=== PATIENT | female | born 1980 | race Two or more races ===

== ENCOUNTER 2019-09-27 09:39 | Emergency (ER) | payer BC, OTHER ==
[~2019-09-27] VITALS: Ht 152.4 cm; Wt 59.0 kg
--- NOTE | 2019-09-27 09:57 | Emergency Room Report ---
History of Present Illness General Chief Complaint: Complications Source: Patient Present Illness HPI Disclaimer: Please note that this report is being documented using DRAGON technology. This can lead to erroneous entry secondary to incorrect interpretation by the dictating instrument. HPI: 38-year-old G3, P2 female at 12 weeks gestation by LMP presents for evaluation of vaginal bleeding and abdominal cramping. Symptoms have been present for the past 2 days. She was seen in the emergency department 09/24 with similar complaints. Ultrasound that time showed an intrauterine 7 weeks 2 days by crown-rump length without heart activity concerning for nonviable . She was discharged to follow-up with her OB which she saw yesterday. She states no repeat ultrasound was done but she did have repeat lab lab work which she does not yet have the results of. She reports persistent abdominal cramping, dark blood and patches of tissue consistent with a "period." Otherwise denies fever, chills, chest pain, shortness of breath, vomiting, diarrhea, dysuria. PMH: Anemia PSH: Cholecystectomy, section x2 Allergies: None Social Hx: None Allergies: Coded Allergies: No Known Allergies (Unverified , 09/25/19) COVID-19 Screening Contact w/high risk pt: No Experienced COVID-19 symptoms?: No COVID-19 Testing performed [facility]ELDER: No Patient History Last Menstrual Period: 07/03/19 Now: Yes : 3 Para: 2 Nursing Documentation-PMH Past Medical History: No History, Except For Review of Systems All Other Systems: negative except mentioned in HPI Physical Exam Vital Signs Date Time Temp Pulse Resp B/P (MAP) Pulse Ox O2 Delivery O2 Flow Rate FiO2 09/27/19 09:45 98.2 80 17 114/93 (100) 98 Room Air General: Awake and alert, appears uncomfortable HEENT: NC/AT. EOMI. Cardiovascular: RRR. S1 and S2 normal. No murmur appreciated Resp: Normal work of breathing. No cough, wheezing or crackles appreciated Abdomen: Abdomen is soft, nondistended. Tenderness to palpation in the lower quadrants and suprapubic region of the abdomen. Skin: Intact. No abrasions, laceration or rash over the exposed skin MSK: Normal tone and bulk. Moving all extremities. No obvious deformity. Neuro: Awake and alert. Mentating appropriately. Procedures Critical Care Time Critical Care Time Total critical care time: Approximately 45 minutes Due to a high probability of clinically significant, life threatening deterioration, the patient required the highest level of preparedness to intervene emergently and I personally spent this critical care time directly and personally managing the patient. This critical care time included obtaining a history, examining the patient, pulse oximetry, ordering and reviewing studies , ordering treatments, evaluating response to treatment and updating management plan as needed, frequent reassessment and discussion with other providers as well as arranging for ultimate disposition. This critical to care time was performed to assess and manage the high probability of life-threatening deterioration that could result in multiorgan failure. This critical care time is separate from the separately billable procedures and treating other patients. Medical Decision Making Diagnostic Impression: Primary Impression: Inevitable spontaneous Additional Impression: Uterine fibroid ER Course Is a 38-year-old G3, P2 female at 12 weeks gestation by LMP presenting with abdominal cramping and vaginal bleeding. Concern given her recent ED visit and ultrasound results of inevitable , incomplete , retained products of conception among others. Blood work obtained shows hemoglobin at 10.4 which is increased from prior visit. White count largely unchanged. hCG declining from 11,593 to 6401 today no evidence of infection on urinalysis, coagulation studies within normal limits. Ultrasound was again obtained showing fluid collection within the cervix appearing to be a yolk sac multiple uterine fibroids and evidence of spontaneous in progress with intrauterine gestational sac seen in the endocervical canal. Patient states she believes she passed some tissue earlier today. No evidence of infection. I discussed with [employer], Dr. Blackman, who recommended 20 units of Pitocin in her IV fluids. At her gestational age it is possible she may require a D&C however at this time is not emergent. She has an [employer] and is calling now to arrange an appointment. 1430: Patient remains in stable condition and feeling well. Symptoms are improved. She is nearly finished with her Pitocin infusion. She is stable for outpatient follow-up and will be discharged after fluids are finished. Instructed to follow-up as soon as possible with [employer] to discuss need for D&C for other interventions as needed. She understands and agrees with this treatment plan. Laboratory Tests Test 09/27/19 09:55 White Blood Count 14.1 K/UL (4.8-10.8) H Red Blood Count 5.02 M/UL (4.20-5.40) Hemoglobin 10.4 G/DL (12.0-16.0) L Hematocrit 35.0 % (37.0-47.0) L Mean Corpuscular Volume 70 FL (80-99) L Mean Corpuscular Hemoglobin 20.7 PG (27.0-31.0) L Mean Corpuscular Hemoglobin Concent 29.7 G/DL (32.0-36.0) L Red Cell Distribution Width 21.9 % (11.6-14.8) H Platelet Count 463 K/UL (150-450) H Mean Platelet Volume 7.0 FL (6.5-10.1) Neutrophils (%) (Auto) 73.9 % (45.0-75.0) Lymphocytes (%) (Auto) 20.9 % (20.0-45.0) Monocytes (%) (Auto) 3.8 % (1.0-10.0) Eosinophils (%) (Auto) 0.6 % (0.0-3.0) Basophils (%) (Auto) 0.8 % (0.0-2.0) Prothrombin Time 10.9 SEC (9.30-11.50) Prothrombin Time INR 1.0 (0.9-1.1) Activated Partial Thromboplast Time 25 SEC (23-33) Sodium Level 134 MMOL/L (136-145) L Potassium Level 3.8 MMOL/L (3.5-5.1) Chloride Level 104 MMOL/L (98-107) Carbon Dioxide Level 21 MMOL/L (21-32) Anion Gap 10 mmol/L (5-15) Blood Urea Nitrogen 17 mg/dL (7-18) Creatinine 0.9 MG/DL (0.55-1.30) Estimated Glomerular Filtration Rate > 60 mL/min (>60) Glucose Level 95 MG/DL (74-106) Calcium Level 9.0 MG/DL (8.5-10.1) Total Bilirubin 0.3 MG/DL (0.2-1.0) Aspartate Amino Transferase (AST) 22 U/L (15-37) Alanine Aminotransferase (ALT) 29 U/L (12-78) Alkaline Phosphatase 68 U/L (46-116) Total Protein 7.9 G/DL (6.4-8.2) Albumin 3.8 G/DL (3.4-5.0) Globulin 4.1 g/dL Albumin/Globulin Ratio 0.9 (1.0-2.7) L Lipase 140 U/L (73-393) Human Chorionic Gonadotropin, Quant 6401 mIU/mL (1-6) H CT/MRI/US Diagnostic Results CT/MRI/US Diagnostic Results : Impression Impression: Somewhat limited exam, due to lack of endovaginal images Evidence of spontaneous in progress, with previously demonstrated intrauterine gestational sac now seen within the endocervical canal. Multiple uterine fibroids, also previously reported Dictated By: Vipin Fairchild MD Electronically Signed By: Vipin Fairchild MD Signed Date/Time 09/27/19 1206 CC: David Aguayo MD Last Vital Signs Date Time Temp Pulse Resp B/P (MAP) Pulse Ox O2 Delivery O2 Flow Rate FiO2 09/27/19 09:45 98.2 80 17 114/93 (100) 98 Room Air David Aguayo MD Sep 27, 2019 09:57
[2019-09-27] MEDS ORDERED: Morphine Sulfate 4mg/ml Inj (IV USE ONLY) IVP ONE (10:00)
--- NOTE | 2019-09-27 10:05 | NUR ---
ED Nurse Note:pt. came from home with vaginal bleeding and lower abdominal cramping pain, pt. is 12 weeks , blood was sent to labs, pt. received IV fluids and pain meds
[2019-09-27 10:19] LABS: BASOPHILS % (AUTO) 0.8 % (0.0-2.0); EOSINOPHILS % (AUTO) 0.6 % (0.0-3.0); HEMOGLOBIN 10.4 G/DL (12.0-16.0); LYMPHOCYTES % (AUTO) 20.9 % (20.0-45.0); MEAN CORPUSCULAR VOLUME 70 FL (80-99); MONOCYTES % (AUTO) 3.8 % (1.0-10.0); NEUTROPHILS % (AUTO) 73.9 % (45.0-75.0); PLATELET COUNT 463 K/UL (150-450); RED BLOOD COUNT 5.02 M/UL (4.20-5.40); RED CELL DISTRIBUTION WIDTH 21.9 % (11.6-14.8); WHITE BLOOD COUNT 14.1 K/UL (4.8-10.8)
[2019-09-27 10:28] LABS: ANION GAP 10 mmol/L (5-15); BLOOD UREA NITROGEN 17 mg/dL (7-18); CARBON DIOXIDE 21 MMOL/L (21-32); CHLORIDE 104 MMOL/L (98-107); CREATININE 0.9 MG/DL (0.55-1.30); POTASSIUM 3.8 MMOL/L (3.5-5.1); SODIUM 134 MMOL/L (136-145)
[2019-09-27 10:33] LABS: ALANINE AMINOTRANSFERASE 29 U/L (12-78); ALBUMIN 3.8 G/DL (3.4-5.0); ALBUMIN/GLOBULIN RATIO 0.9 (1.0-2.7); ALKALINE PHOSPHATASE 68 U/L (46-116); ASPARTATE AMINO TRANSFERASE 22 U/L (15-37); BILIRUBIN,TOTAL 0.3 MG/DL (0.2-1.0)
--- NOTE | 2019-09-27 12:11 | Diagnostic Imaging Report ---
Indication: Pelvic pain, vaginal bleeding, positive test Technique: Transabdominal images of the uterus and ovaries. No transvaginal images, per patient request Comparison: 09/25/2019 Findings: Uterus measures 10.9 cm length by 6 cm AP. There is a fluid collection within the cervix, with what appears to be a yolk sac. Previously, there was a gestational sac within the upper uterine endometrium. No heart activity is demonstrated. No definite pole. The endometrial stripe is not well-defined. Multiple myometrial fibroids are demonstrated, measuring up to 3.3 cm in diameter. The ovaries are normal in size, demonstrate normal flow on Doppler Impression: Somewhat limited exam, due to lack of endovaginal images Evidence of spontaneous in progress, with previously demonstrated intrauterine gestational sac now seen within the endocervical canal. Multiple uterine fibroids, also previously reported
[2019-09-27 14:03] VITALS: BP 103/83
[2019-09-27 15:15] VITALS: BP 103/83
--- NOTE | 2019-09-27 15:15 | NUR ---
ER DISCHARGE NOTE: Patient is cleared to be discharged per ERMD, pt is aox4, on room air, with stable vital signs. pt was given dc and prescription instructions, pt was able to verbalize understanding, pt id band and iv site removed without complications. pt is able to ambulate with steady gait. pt took all belongings.
== END 2019-09-27 15:15 | disposition home or self-care (01) ==
LOC: EMR 09:54
DX: O03.9 Complete or unspecified spontaneous abortion without complication (principal); D25.9 Leiomyoma of uterus, unspecified; Z90.49 Acquired absence of other specified parts of digestive tract
CPT/HCPCS: 36415; 76801; 80053; 83690; 84702; 85025; 85610; 85730; 86850; 86900; 86901; 96361; 96374; 99284; J2270; J2590; J7030